=== PATIENT | male | born 1960 | race Caucasian/White ===

== ENCOUNTER 2021-01-23 16:36 | Emergency (ER) | payer OTHER ==
[~2021-01-23] VITALS: Ht 190.5 cm; Wt 110.0 kg
[2021-01-23] MEDS ORDERED: ASPIRIN 81 MG TABLET CHEW PO ONE (17:00)
[2021-01-23 17:42] LABS: BASOPHILS % (AUTO) 1 % (0-1); EOSINOPHILS % (AUTO) 1 % (1-7); LYMPHOCYTES % (AUTO) 27 % (22-44); MEAN CORPUSCULAR HEMOGLOBIN 31.5 pg (27.5-34.5); MEAN CORPUSCULAR HGB CONC 33.7 g/dL (33.2-36.2); MEAN PLATELET VOLUME 8.5 fL (7.4-10.4); MONOCYTES % (AUTO) 10 % (2-9); NEUTROPHILS % (AUTO) 61 % (42-75); PLATELET COUNT 203 x10^3/uL (130-400); RED BLOOD COUNT 4.75 x10^6/uL (4.38-5.82); RED CELL DISTRIBUTION WIDTH 13.4 % (9.4-14.8)
[2021-01-23 17:51] LABS: ALANINE AMINOTRANSFERASE 32 U/L (12-78); ALBUMIN 3.5 g/dL (3.4-5.0); ANION GAP 5 mmol/L (5-15); CALCIUM 8.5 mg/dL (8.5-10.1); CHLORIDE 110 mmol/L (98-107); CREATININE 1.16 mg/dL (0.7-1.3)
--- NOTE | 2021-01-23 17:55 | NUR ---
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
[2021-01-23 17:56] LABS: ALKALINE PHOSPHATASE 71 U/L (45-117); BILIRUBIN,TOTAL 0.6 mg/dL (0.2-1.0); TOTAL PROTEIN 7.1 g/dL (6.4-8.2); TROPONIN I < 0.015 ng/mL (0.000-0.045)
--- NOTE | 2021-01-23 18:00 | NUR ---
PATIENT WHEELED BACK FROM LOBBY WITH CHIEF C/O LEFT-SIDED CHEST PAIN YESTERDAY. PER PATIENT "IT FELT LIKE I GOT HIT BY LIGHTNING." PATIENT HAD BLOOD WORK DONE PER PCP, TOLD TO COME INTO ED TODAY DUE TO HIGH TROPONIN LEVEL. PATIENT REPORTS SORENESS TODAY IN HIS LEFT CHEST, DENIES SOB, NO N/V/D. NADN, CONNECTED TO MONITOR, PATIENT A&O X4, CALL LIGHT WITHIN REACH.
[2021-01-23] MEDS ORDERED: ASPIRIN 81 MG TABLET CHEW ONE (18:08)
[2021-01-23] MEDS ORDERED: MELO15TA24 PO (18:18)
[2021-01-23] MEDS ORDERED: BISO10TA8 PO (18:18)
[2021-01-23] MEDS ORDERED: LISI-167 PO (18:18)
--- NOTE | 2021-01-23 18:37 | NUR ---
ERMD AT BEDSIDE TO DISCUSS POC.
--- NOTE | 2021-01-23 18:54 | NUR ---
REPORT TO ARMAND SALGADO FOR TRANSFER OF PATIENT CARE.
--- NOTE | 2021-01-23 18:57 | NUR ---
REPORT FROM MEGAN ACUNA
[2021-01-23 19:57] VITALS: BP 132/79
== END 2021-01-23 20:05 | disposition home or self-care (01) ==
LOC: ED 20:01
DX: R07.89 Other chest pain (principal); R11.0 Nausea; I10 Essential (primary) hypertension; R94.31 Abnormal electrocardiogram [ECG] [EKG]
CPT/HCPCS: 36415; 71045; 80053; 84484; 85025; 93005; 99285